=== PATIENT | male | born 1940 | race Caucasian/White ===

== ENCOUNTER → 2018-01-21 | Outpatient (CLI) | payer MEDICARE, BC | END | disposition home or self-care (01) | LOC: CVU 09:41 | PROVIDERS: ATTEND Internal Medicine Cardiovascular Disease | DX: I08.0 Rheumatic disorders of both mitral and aortic valves (principal) | CPT/HCPCS: 93306 ==

== ENCOUNTER 2018-03-03 09:22 | Day surgery (SDC) | payer MEDICARE, BC ==
[~2018-03-03] VITALS: Ht 177.8 cm; Wt 71.8 kg
[2018-03-03 09:57] VITALS: BP 130/77
[2018-03-03] MEDS ORDERED: SODIUM CHLORIDE 0.9% 1,000 ML IV ONE (10:00)
[2018-03-03] MEDS ORDERED: CALC-534 PO (10:12)
[2018-03-03] MEDS ORDERED: LACT1CAP35 PO (10:12)
[2018-03-03] MEDS ORDERED: ASPI-496 PO (10:12)
[2018-03-03] MEDS ORDERED: CHOL100011 PO (10:12)
[2018-03-03] MEDS ORDERED: PROPOFOL 10 MG/ML, 20ML ONE (11:27)
== END 2018-03-03 12:51 ==
LOC: CACL 09:22
PROVIDERS: ATTEND Internal Medicine Cardiovascular Disease
DX: I34.0 Nonrheumatic mitral (valve) insufficiency (principal); I05.9 Rheumatic mitral valve disease, unspecified; Z79.82 Long term (current) use of aspirin; E78.5 Hyperlipidemia, unspecified
CPT/HCPCS: 93312; 93321; 93325; J2704

== ENCOUNTER 2018-04-26 08:43 | Day surgery (SDC) | payer MEDICARE, BC ==
[~2018-04-26] VITALS: Ht 177.8 cm; Wt 70.5 kg
[~2018-04-26 08:43] MED LIST: ASPI-496 PO; CALC-534 PO; CHOL100011 PO; LACT1CAP35 PO
[2018-04-26 09:07] VITALS: BP 124/72
[2018-04-26 09:37] LABS: BASOPHILS # (AUTO) 0.02 x10^3/uL (0-0.1); BASOPHILS % (AUTO) 1 % (0-1); EOSINOPHILS # (AUTO) 0.04 x10^3/uL (0-0.4); EOSINOPHILS % (AUTO) 1 % (1-7); LYMPHOCYTES # (AUTO) 0.76 x10^3/uL (1-3.4); LYMPHOCYTES % (AUTO) 24 % (22-44); MD NO; MEAN CORPUSCULAR HEMOGLOBIN 31.5 pg (27.5-34.5); MEAN CORPUSCULAR HGB CONC 34.4 g/dL (33.2-36.2); MEAN CORPUSCULAR VOLUME 91.6 fL (81-97); MEAN PLATELET VOLUME 7.9 fL (7.4-10.4); MONOCYTES # (AUTO) 0.33 x10^3/uL (0.2-0.8); MONOCYTES % (AUTO) 10 % (2-9); NEUTROPHILS # (AUTO) 2.06 x10^3/uL (1.8-6.8); NEUTROPHILS % (AUTO) 64 % (42-75); PLATELET COUNT 269 x10^3/uL (130-400); RED BLOOD COUNT 4.38 x10^6/uL (4.38-5.82); RED CELL DISTRIBUTION WIDTH 13.8 % (9.4-14.8)
[2018-04-26 09:46] LABS: ANION GAP 6 mmol/L (5-15); CALCIUM 8.8 mg/dL (8.5-10.1); CHLORIDE 109 mmol/L (98-107); CREATININE 0.59 mg/dL (0.7-1.3)
[2018-04-26] MEDS ORDERED: LIDOCAINE/PF 1%, 30ML ONE (10:57)
[2018-04-26] MEDS ORDERED: FENTANYL PF 100 MCG/2ML ONE (10:57)
[2018-04-26] MEDS ORDERED: MIDAZOLAM 1 MG/ML, 5ML ONE (10:57)
== END 2018-04-26 14:10 ==
LOC: CACL 08:43
PROVIDERS: ATTEND Internal Medicine Cardiovascular Disease
DX: I34.0 Nonrheumatic mitral (valve) insufficiency (principal); Z88.6 Allergy status to analgesic agent; Z88.8 Allergy status to other drugs, medicaments and biological substances; Z79.82 Long term (current) use of aspirin
CPT/HCPCS: 36415; 80048; 85025; 93454; 99156; C1760; C1769; C1894; J2250; J3010; J3490; Q9967

== ENCOUNTER 2018-05-03 05:06 | Inpatient (IN) | payer MEDICARE, BC ==
[2018-05-02 11:57] LABS: MICROSCOPIC AUTO
[2018-05-02 12:05] LABS: CULTURE INDICATED? NO
[2018-05-02 13:45] LABS: BASOPHILS # (AUTO) 0.01 x10^3/uL (0-0.1); BASOPHILS % (AUTO) 0 % (0-1); EOSINOPHILS # (AUTO) 0.05 x10^3/uL (0-0.4); EOSINOPHILS % (AUTO) 2 % (1-7); LYMPHOCYTES # (AUTO) 0.81 x10^3/uL (1-3.4); LYMPHOCYTES % (AUTO) 23 % (22-44); MD NO; MEAN CORPUSCULAR HEMOGLOBIN 30.6 pg (27.5-34.5); MEAN CORPUSCULAR HGB CONC 33.3 g/dL (33.2-36.2); MEAN PLATELET VOLUME 8.2 fL (7.4-10.4); MONOCYTES # (AUTO) 0.38 x10^3/uL (0.2-0.8); MONOCYTES % (AUTO) 11 % (2-9); NEUTROPHILS # (AUTO) 2.34 x10^3/uL (1.8-6.8); NEUTROPHILS % (AUTO) 65 % (42-75); PLATELET COUNT 258 x10^3/uL (130-400); RED BLOOD COUNT 4.51 x10^6/uL (4.38-5.82); RED CELL DISTRIBUTION WIDTH 14.2 % (9.4-14.8)
[2018-05-02 13:51] LABS: INTERNATIONAL NORMALIZED RATIO 0.9 (0.93-1.1); PROTHROMBIN TIME 9.4 Seconds (9.6-11.5)
[2018-05-02 13:54] LABS: ALANINE AMINOTRANSFERASE 25 U/L (12-78); ALBUMIN 3.5 g/dL (3.4-5.0); ANION GAP 6 mmol/L (5-15); CHLORIDE 108 mmol/L (98-107); CREATININE 0.67 mg/dL (0.7-1.3)
[2018-05-02 13:56] LABS: ALKALINE PHOSPHATASE 67 U/L (45-117); BILIRUBIN,TOTAL 0.4 mg/dL (0.2-1.0); TOTAL PROTEIN 6.4 g/dL (6.4-8.2)
[~2018-05-03] VITALS: Ht 177.8 cm; Wt 74.3 kg
[2018-05-03 05:18] VITALS: BP_SYST 110; BP_DIAS 69; BP_DIAS 70
[2018-05-03] MEDS ORDERED: ALBUMIN HUMAN 5% 500 ML IV PRN (05:30)
[2018-05-03] MEDS ORDERED: INSULIN LISPRO 100 UNITS/ML, PEN SQ-INSULIN SCH ×2 (06:00→16:00)
[2018-05-03] MEDS: CHLORHEXIDINE 15 ML BOTTLE MM SCH ×2 (06:06→06:17)
[2018-05-03] MEDS: MUPIROCIN OINT 2%, 22GM TP SCH ×2 (06:06→06:17)
[2018-05-03] MEDS: SODIUM CHLORIDE FLUSH 10ML SYR IVF SCH ×3 (06:17→21:35)
[2018-05-03] MEDS ORDERED: FENTANYL PF 250 MCG/5ML ONE ×4 (06:38)
[2018-05-03] MEDS ORDERED: MIDAZOLAM 10MG/2 ML ONE (06:38)
[2018-05-03] MEDS ORDERED: AMINOCAPROIC ACID 250 MG/ML, 20ML ONE ×2 (06:43→09:20)
[2018-05-03] MEDS ORDERED: PROPOFOL 10 MG/ML, 20ML ONE (06:46)
[2018-05-03] MEDS ORDERED: VANCOMYCIN 1,100 MG in SODIUM CHLORIDE 0.9% 250 ML IV PRN (07:30)
[2018-05-03] MEDS ORDERED: DEXMEDETOMIDINE 200 MCG in SODIUM CHLORIDE 0.9% 48 ML IV SCH (07:30)
[2018-05-03] MEDS ORDERED: PHENYLEPHRINE 10 MG in SODIUM CHLORIDE 0.9% 249 ML IV PRN ×2 (07:30→11:16)
[2018-05-03] MEDS ORDERED: REGULAR INSULIN 62.5 UNITS in SODIUM CHLORIDE 0.9% 249.375 ML IV PRN ×2 (07:30→11:16)
[2018-05-03] MEDS ORDERED: POTASSIUM CHLORIDE 80 MEQ, SODIUM BICARBONATE 8.4% 10 MEQ, MAGNESIUM SULFATE 0.5 GM, LI... IV PRN (07:30)
[2018-05-03] MEDS ORDERED: CEFUROXIME 1.5 GM in SODIUM CHLORIDE 0.9% 50 ML IVPB PRN (07:30)
[2018-05-03] MEDS ORDERED: EPINEPHRINE 2 MG in SODIUM CHLORIDE 0.9% 248 ML IV SCH (07:30)
[2018-05-03] MEDS ORDERED: MANNITOL PMX 20% 500 ML IVPB PRN (07:30)
[2018-05-03] MEDS ORDERED: ROCURONIUM 10MG/ML,5ML ONE ×3 (09:19)
[2018-05-03] MEDS ORDERED: PROTAMINE SULFATE 10 MG/ML, 25ML ONE ×2 (09:20)
[2018-05-03] MEDS ORDERED: SODIUM CHLORIDE 0.9% 1,000 ML IV PRN (11:16)
[2018-05-03] MEDS ORDERED: VASOPRESSIN 50 UNIT in SODIUM CHLORIDE 0.9% 247.5 ML IV PRN (11:16)
[2018-05-03] MEDS ORDERED: DOBUTAMINE 250 MG in SODIUM CHLORIDE 0.9% 230 ML IV PRN (11:16)
[2018-05-03] MEDS ORDERED: DEXMEDETOMIDINE 200 MCG in SODIUM CHLORIDE 0.9% 48 ML IV PRN (11:16)
[2018-05-03] MEDS ORDERED: NITROGLYCERIN/D5W PMX 250 ML IV PRN (11:16)
[2018-05-03] MEDS ORDERED: OXYcodone IR 5MG TABLET PO PRN (11:30)
[2018-05-03] MEDS ORDERED: MIDAZOLAM 1 MG/ML, 5ML IVPush PRN (11:30)
[2018-05-03] MEDS: KSCALE TO 4.5 IV SCH ×2 (11:30→17:30)
[2018-05-03] MEDS ORDERED: BISACODYL 10 MG SUPP PR PRN (11:30)
[2018-05-03] MEDS ORDERED: HYDROcodone/APAP 10/325 MG TABLET PO PRN (11:30)
[2018-05-03] MEDS ORDERED: GLUCAGON 1 MG IM PRN (11:30)
[2018-05-03] MEDS ORDERED: ACETAMINOPHEN 650 MG SUPP PR PRN (11:30)
[2018-05-03] MEDS ORDERED: SODIUM BICARB 8.4%, 50ML SYRINGE IV PRN (11:30)
[2018-05-03] MEDS ORDERED: EPINEPHRINE 2 MG in SODIUM CHLORIDE 0.9% 248 ML IV PRN (11:30)
[2018-05-03] MEDS ORDERED: INSULIN REGULAR 100 UNITS/ML, 3ML VIAL IVPush PRN (11:30)
[2018-05-03] MEDS ORDERED: DEXTROSE 4 GM TAB.CHEW PO PRN (11:30)
[2018-05-03] MEDS ORDERED: DEXTROSE 50%, 50ML SYRINGE IVPush PRN (11:30)
[2018-05-03] MEDS ORDERED: BISACODYL 5 MG EC TABLET PO PRN (11:30)
[2018-05-03] MEDS ORDERED: HEPARIN 1,000 UNITS/ML, 30ML ONE (11:36)
[2018-05-03] MEDS ORDERED: LIDOCAINE 2% 100MG/5ML SYRINGE ONE (11:37)
[2018-05-03] MEDS ORDERED: ALBUMIN HUMAN 25% 50 ML ONE (11:37)
[2018-05-03 11:52] LABS: GLUCOSE BY BLOOD GAS ANALYZER 122 mg/dL (70-110); HEMOGLOBIN BY BLOOD GAS ANALYZ 11.7 g/dL (14.0-18.0); POTASSIUM BY BLOOD GAS ANALYZR 3.6 mmol/L (3.6-5.5)
[2018-05-03 11:57] LABS: FIO2 61 %
[2018-05-03] MEDS: MAGNESIUM SULFATE PMX 2GM/50ML 25 ML IVPB SCH (12:16)
[2018-05-03 12:26] LABS: INTERNATIONAL NORMALIZED RATIO 1.17 (0.93-1.1); PROTHROMBIN TIME 12.1 Seconds (9.6-11.5)
[2018-05-03] MEDS ORDERED: POTASSIUM CHLORIDE PMX 100 ML IV ONE (12:30)
[2018-05-03] MEDS ORDERED: FENTANYL PF 100 MCG/2ML ONE (12:36)
[2018-05-03] MEDS: FENTANYL PF 100 MCG/2ML IVPush PRN ×4 (12:59→23:24)
[2018-05-03] MEDS: ONDANSETRON 2MG/ML, 2ML IVPush PRN ×2 (16:32→23:16)
[2018-05-03] MEDS: ACETAMINOPHEN 325 MG TABLET PO PRN (18:24)
[2018-05-03] MEDS: PROCHLORPERAZINE 5 MG/ML, 2ML IVPush PRN (19:26)
[2018-05-03] MEDS: CEFUROXIME 1.5 GM in SODIUM CHLORIDE 0.9% 50 ML IVPB SCH (19:58)
[2018-05-03] MEDS: VANCOMYCIN 1,100 MG in SODIUM CHLORIDE 0.9% 250 ML IVPB SCH (21:35)
[2018-05-03] MEDS: MUPIROCIN OINT 2%, 22GM NAS SCH (21:36)
[2018-05-03] MEDS: INSULIN LISPRO 100 UNITS/ML, PEN SQ-INSULIN SCH (21:36)
[2018-05-03] MEDS: LACTATED RINGERS 1,000 ML IV PRN (22:34)
[2018-05-04] MEDS: KSCALE TO 4.5 IV SCH ×2 (00:39→05:30)
[2018-05-04] MEDS: LACTATED RINGERS 1,000 ML IV PRN (00:40)
[2018-05-04] MEDS: INSULIN LISPRO 100 UNITS/ML, PEN SQ-INSULIN SCH ×6 (00:57→20:14)
[2018-05-04] MEDS ORDERED: POTASSIUM CHLORIDE PMX 100 ML IV ONE ×2 (01:30→06:30)
[2018-05-04] MEDS: PROCHLORPERAZINE 5 MG/ML, 2ML IVPush PRN (01:59)
[2018-05-04] MEDS: HYDROcodone/APAP 5/325 TABLET PO PRN ×2 (03:36→14:44)
[2018-05-04 04:00] VITALS: BP 118/56
[2018-05-04 05:48] LABS: BASOPHILS % (AUTO) 0 % (0-1); EOSINOPHILS % (AUTO) 0 % (1-7); LYMPHOCYTES # (AUTO) 0.21 x10^3/uL (1-3.4); LYMPHOCYTES % (AUTO) 3 % (22-44); MD NO; MEAN CORPUSCULAR HEMOGLOBIN 30.8 pg (27.5-34.5); MEAN CORPUSCULAR HGB CONC 33.6 g/dL (33.2-36.2); MEAN CORPUSCULAR VOLUME 91.7 fL (81-97); MEAN PLATELET VOLUME 8.3 fL (7.4-10.4); MONOCYTES # (AUTO) 0.65 x10^3/uL (0.2-0.8); MONOCYTES % (AUTO) 8 % (2-9); NEUTROPHILS # (AUTO) 7.38 x10^3/uL (1.8-6.8); NEUTROPHILS % (AUTO) 90 % (42-75); PLATELET COUNT 159 x10^3/uL (130-400); RED BLOOD COUNT 3.81 x10^6/uL (4.38-5.82)
[2018-05-04 05:56] LABS: ALBUMIN 2.9 g/dL (3.4-5.0); ANION GAP 10 mmol/L (5-15); CALCIUM 7.3 mg/dL (8.5-10.1); CHLORIDE 109 mmol/L (98-107)
[2018-05-04 05:58] LABS: CREATININE 0.42 mg/dL (0.7-1.3)
[2018-05-04 06:03] LABS: INTERNATIONAL NORMALIZED RATIO 0.97 (0.93-1.1); PROTHROMBIN TIME 10.1 Seconds (9.6-11.5)
[2018-05-04] MEDS: ONDANSETRON 2MG/ML, 2ML IVPush PRN ×2 (07:59→15:10)
[2018-05-04] MEDS ORDERED: MAGNESIUM HYDROXIDE 8%, 30ML UDC PO PRN (08:00)
[2018-05-04] MEDS: KETOROLAC 30 MG/1 ML IM PRN ×2 (08:00→15:10)
[2018-05-04] MEDS: FUROSEMIDE 20 MG/2 ML IV SCH (08:00)
[2018-05-04] MEDS: SODIUM CHLORIDE FLUSH 10ML SYR IVF SCH ×5 (08:05→20:11)
[2018-05-04] MEDS: WARFARIN BIOPROSTHETIC VALVE PROTOCOL 2-3 XX SCH (08:05)
[2018-05-04] MEDS: CEFUROXIME 1.5 GM in SODIUM CHLORIDE 0.9% 50 ML IVPB SCH (08:06)
[2018-05-04] MEDS: ASPIRIN 81 MG TABLET EC PO SCH (08:55)
[2018-05-04] MEDS: POTASSIUM CHLORIDE 10 MEQ TABLET.ER PO SCH (08:55)
[2018-05-04] MEDS: VANCOMYCIN 1,100 MG in SODIUM CHLORIDE 0.9% 250 ML IVPB SCH (08:55)
[2018-05-04] MEDS: MUPIROCIN OINT 2%, 22GM NAS SCH ×2 (08:57→20:12)
[2018-05-04] MEDS: MUPIROCIN OINT 2%, 22GM TP SCH ×2 (08:58→19:27)
[2018-05-04] MEDS: CHLORHEXIDINE 15 ML BOTTLE MM SCH ×2 (12:58→23:29)
[2018-05-04 15:07] VITALS: BP 111/70
[2018-05-04] MEDS: ACETAMINOPHEN 325 MG TABLET PO PRN (15:10)
[2018-05-04] MEDS: MAGNESIUM SULFATE PMX 2GM/50ML 25 ML IVPB SCH (17:09)
[2018-05-04] MEDS ORDERED: WARFARIN 5 MG TABLET PO-COUM ONE (18:00)
[2018-05-04 19:11] VITALS: BP 119/68
[2018-05-04 19:16] VITALS: BP_SYST 92; BP_SYST 95; BP_DIAS 55; BP_DIAS 56
[2018-05-05 03:29] VITALS: BP 104/64
[2018-05-05 03:57] LABS: BASOPHILS # (AUTO) 0.06 x10^3/uL (0-0.1); BASOPHILS % (AUTO) 1 % (0-1); EOSINOPHILS # (AUTO) 0.01 x10^3/uL (0-0.4); EOSINOPHILS % (AUTO) 0 % (1-7); LYMPHOCYTES # (AUTO) 0.44 x10^3/uL (1-3.4); LYMPHOCYTES % (AUTO) 8 % (22-44); MD NO; MEAN CORPUSCULAR HEMOGLOBIN 31.2 pg (27.5-34.5); MEAN CORPUSCULAR HGB CONC 33.6 g/dL (33.2-36.2); MEAN CORPUSCULAR VOLUME 92.8 fL (81-97); MEAN PLATELET VOLUME 8.3 fL (7.4-10.4); MONOCYTES # (AUTO) 0.56 x10^3/uL (0.2-0.8); MONOCYTES % (AUTO) 10 % (2-9); NEUTROPHILS # (AUTO) 4.82 x10^3/uL (1.8-6.8); NEUTROPHILS % (AUTO) 82 % (42-75); PLATELET COUNT 132 x10^3/uL (130-400); RED BLOOD COUNT 3.41 x10^6/uL (4.38-5.82); RED CELL DISTRIBUTION WIDTH 13.7 % (9.4-14.8)
[2018-05-05 03:58] LABS: ANION GAP 6 mmol/L (5-15); CALCIUM 7.7 mg/dL (8.5-10.1); CHLORIDE 107 mmol/L (98-107)
[2018-05-05 05:01] LABS: INTERNATIONAL NORMALIZED RATIO 0.95 (0.93-1.1); PROTHROMBIN TIME 9.9 Seconds (9.6-11.5)
[2018-05-05 06:58] VITALS: BP 110/73
[2018-05-05] MEDS: INSULIN LISPRO 100 UNITS/ML, PEN SQ-INSULIN SCH ×4 (08:47→21:00)
[2018-05-05] MEDS: WARFARIN BIOPROSTHETIC VALVE PROTOCOL 2-3 XX SCH (09:00)
[2018-05-05] MEDS: SODIUM CHLORIDE FLUSH 10ML SYR IVF SCH ×6 (09:00→20:53)
[2018-05-05] MEDS: KETOROLAC 30 MG/1 ML IV PRN ×2 (10:59→21:01)
[2018-05-05] MEDS: FUROSEMIDE 20 MG/2 ML IV SCH (11:00)
[2018-05-05] MEDS: ACETAMINOPHEN 325 MG TABLET PO PRN ×2 (11:00→21:02)
[2018-05-05] MEDS: ASPIRIN 81 MG TABLET EC PO SCH (11:01)
[2018-05-05] MEDS: CHLORHEXIDINE 15 ML BOTTLE MM SCH ×2 (11:01→23:30)
[2018-05-05] MEDS: POTASSIUM CHLORIDE 10 MEQ TABLET.ER PO SCH (11:01)
[2018-05-05] MEDS: MUPIROCIN OINT 2%, 22GM NAS SCH ×2 (11:01→20:50)
[2018-05-05] MEDS: MAGNESIUM SULFATE PMX 2GM/50ML 25 ML IVPB SCH (13:00)
[2018-05-05 13:12] VITALS: BP 98/63
[2018-05-05] MEDS ORDERED: MAGNESIUM SULFATE PMX 2GM/50ML 50 ML IVPB SCH (14:30)
[2018-05-05] MEDS ORDERED: MAGNESIUM SULFATE PMX 2GM/50ML 25 ML IVPB SCH (14:30)
[2018-05-05] MEDS ORDERED: WARFARIN 5 MG TABLET PO-COUM ONE (18:00)
[2018-05-05 19:09] VITALS: BP 108/70
[2018-05-06 00:55] VITALS: BP 90/56
[2018-05-06 04:31] LABS: ANION GAP 5 mmol/L (5-15); CALCIUM 7.2 mg/dL (8.5-10.1); CHLORIDE 109 mmol/L (98-107); CREATININE 0.39 mg/dL (0.7-1.3)
[2018-05-06 07:29] VITALS: BP 116/73
[2018-05-06] MEDS ORDERED: POTASSIUM CHLORIDE 20 MEQ TAB.ER.PRT PO ONE (07:30)
[2018-05-06] MEDS: INSULIN LISPRO 100 UNITS/ML, PEN SQ-INSULIN SCH ×2 (08:15→11:27)
[2018-05-06] MEDS: FUROSEMIDE 20 MG/2 ML IV SCH (08:17)
[2018-05-06] MEDS: POTASSIUM CHLORIDE 10 MEQ TABLET.ER PO SCH (08:17)
[2018-05-06] MEDS: ASPIRIN 81 MG TABLET EC PO SCH (08:17)
[2018-05-06] MEDS: SODIUM CHLORIDE FLUSH 10ML SYR IVF SCH ×6 (08:18→21:00)
[2018-05-06] MEDS: MUPIROCIN OINT 2%, 22GM NAS SCH ×2 (08:19→21:09)
[2018-05-06] MEDS: WARFARIN BIOPROSTHETIC VALVE PROTOCOL 2-3 XX SCH (08:20)
[2018-05-06 09:48] LABS: INTERNATIONAL NORMALIZED RATIO 0.9 (0.93-1.1); PROTHROMBIN TIME 9.4 Seconds (9.6-11.5)
[2018-05-06] MEDS: ACETAMINOPHEN 325 MG TABLET PO PRN (14:28)
[2018-05-06] MEDS: KETOROLAC 30 MG/1 ML IV PRN (14:29)
[2018-05-06 15:13] VITALS: BP 105/68
[2018-05-06] MEDS ORDERED: WARFARIN 5 MG TABLET PO-COUM SCH (18:00)
[2018-05-06 19:41] VITALS: BP 97/58
[2018-05-07 00:34] VITALS: BP 116/73
[2018-05-07 05:38] LABS: INTERNATIONAL NORMALIZED RATIO 0.98 (0.93-1.1); PROTHROMBIN TIME 10.2 Seconds (9.6-11.5)
[2018-05-07 05:41] LABS: ANION GAP 7 mmol/L (5-15); CHLORIDE 109 mmol/L (98-107); CREATININE 0.42 mg/dL (0.7-1.3)
[2018-05-07 07:00] VITALS: BP 104/64
[2018-05-07] MEDS ORDERED: HYDR-3240 PO (07:48)
[2018-05-07] MEDS ORDERED: WARF5TAB PO (07:48)
[2018-05-07] MEDS ORDERED: FURO-93 PO (07:48)
[2018-05-07] MEDS ORDERED: POTA10TA5 PO (07:48)
[2018-05-07] MEDS: FUROSEMIDE 20 MG/2 ML IV SCH (07:54)
[2018-05-07] MEDS: POTASSIUM CHLORIDE 10 MEQ TABLET.ER PO SCH (07:54)
[2018-05-07] MEDS: ASPIRIN 81 MG TABLET EC PO SCH (07:54)
[2018-05-07] MEDS: SODIUM CHLORIDE FLUSH 10ML SYR IVF SCH ×3 (07:55→08:00)
[2018-05-07] MEDS: MUPIROCIN OINT 2%, 22GM NAS SCH (07:55)
[2018-05-07] MEDS: WARFARIN BIOPROSTHETIC VALVE PROTOCOL 2-3 XX SCH (09:00)
[2018-05-07] MEDS ORDERED: WARFARIN 10 MG TABLET PO-COUM ONE (18:00)
== END 2018-05-07 13:04 | disposition home health service (06) | DRG 219 ==
LOC: 5SO 05:06 → CSU 07:42 → 5SO 05-04 14:58
PROVIDERS: ADMIT Thoracic Surgery (Cardiothoracic Vascular Surgery); ATTEND Thoracic Surgery (Cardiothoracic Vascular Surgery)
PROC: 5A1221Z Performance of Cardiac Output, Continuous (ICD-10-PCS; 2018-05-03)
PROC: B246ZZ4 Ultrasonography of Right and Left Heart, Transesophageal (ICD-10-PCS; 2018-05-03)
PROC: 02BG0ZZ Excision of Mitral Valve, Open Approach (ICD-10-PCS; 2018-05-03)
PROC: 02UG08Z Supplement Mitral Valve with Zooplastic Tissue, Open Approach (ICD-10-PCS; principal; 2018-05-03 08:00)
DX: I34.1 Nonrheumatic mitral (valve) prolapse (principal); I50.33 Acute on chronic diastolic (congestive) heart failure; I34.0 Nonrheumatic mitral (valve) insufficiency; C61 Malignant neoplasm of prostate; E78.5 Hyperlipidemia, unspecified; I45.10 Unspecified right bundle-branch block; I89.0 Lymphedema, not elsewhere classified; K57.90 Diverticulosis of intestine, part unspecified, without perforation or abscess without bleeding; Z82.49 Family history of ischemic heart disease and other diseases of the circulatory system; Z85.528 Personal history of other malignant neoplasm of kidney; Z90.5 Acquired absence of kidney; Z90.79 Acquired absence of other genital organ(s); Z79.82 Long term (current) use of aspirin
CPT/HCPCS: 36415; 36600; 71045; 71046; 80048; 80053; 81001; 82040; 82330; 82800; 82803; 82810; 82947; 82962; 83036; 83735; 84132; 84295; 85014; 85018; 85025; 85049; 85347; 85610; 85730; 86850; 86900; 86923; 87081; 88305; 93005; 93312; 93321; 93325; 93880; 94002; J0697; J1644; J1815; J1885; J2250; J2405; J2704; J2720; J3010; J3370; J3475; J3480; J3490; P9045; P9047; C1751; C1760; J0171; J0780; J1940; J2370; J7050; J7120

== ENCOUNTER → 2018-08-03 | Outpatient (CLI) | payer MEDICARE, BC ==
[~2018-08-03] MED LIST changes: +FURO-93 PO; +HYDR-3240 PO; +POTA10TA5 PO; +WARF5TAB PO
== END | disposition home or self-care (01) ==
LOC: CVU 10:40
PROVIDERS: ATTEND Internal Medicine Cardiovascular Disease
DX: I08.2 Rheumatic disorders of both aortic and tricuspid valves (principal)
CPT/HCPCS: 93306

== ENCOUNTER → 2020-08-30 | Outpatient (CLI) | payer MEDICARE, BC ==
[~2020-08-30] MED LIST changes: -WARF5TAB PO; +WARF5TAB2 PO
== END | disposition home or self-care (01) ==
LOC: CFH 10:08
PROVIDERS: ATTEND Internal Medicine Cardiovascular Disease
DX: I08.8 Other rheumatic multiple valve diseases (principal)
CPT/HCPCS: 93306